=== PATIENT | female | born 1955 | race Caucasian/White ===

== ENCOUNTER 2019-10-17 02:28 | Observation (INO) ==
[2019-10-17] MEDS ORDERED: Nitroglycerin 0.4 MG TAB.SUBL SL PRN ×2 (03:11→10:45)
[2019-10-17 03:51] LABS: Basophils # 0.1 K/mcL (0.0-0.2); Basophils % 0.6 %; Eosinophils # 0.5 K/mcL (0.0-0.6); Hematocrit 34.4 % (35.3-44.9); Hemoglobin 11.2 g/dL (11.5-15.4); Immature Granulocytes % 0.6 % (0-4); Lymphocytes # 3.9 K/mcL (0.6-4.6); Lymphocytes % 37.1 %; Mean Corpuscular HGB Conc 32.6 g/dL (31.6-35.5); Mean Corpuscular Hemoglobin 28.6 pg (28.0-33.3); Mean Platelet Volume 10.9 fL (9.4-12.4); Monocytes # 0.9 K/mcL (0.0-1.3); Monocytes % 8.8 %; Neutrophils # 5.1 K/mcL (1.6-8.9); Platelet Count 237 K/mcL (140-400); Red Blood Count 3.91 M/mcL (3.82-4.97); Red Cell Distribution Width 12.5 % (11.5-14.5); Segmented Neutrophils % 47.9 %; White Blood Count 10.6 K/mcL (4.3-11.1)
[2019-10-17 03:56] LABS: INR 0.9; Prothrombin Time 10.3 Seconds (9.4-12.1)
[2019-10-17 03:59] LABS: Activated Partial Thrombo Time 30.9 Seconds (26.0-36.0)
[2019-10-17 04:07] LABS: Calcium 7.9 mg/dL (8.6-10.3); Troponin I 0.03 ng/mL (< 0.04)
[2019-10-17] MEDS ORDERED: 0.9 % Sodium Chloride 1,000 ML IVC SCH ×2 (06:15→10:45)
[2019-10-17] MEDS ORDERED: Naloxone 0.4 MG/ML INJ IVP PRN ×2 (06:45→10:45)
[2019-10-17] MEDS ORDERED: D5% in Water 1,000 ML IVC PRN ×2 (06:48→10:45)
[2019-10-17] MEDS ORDERED: *HR* Dextrose 50 % in Water (Syg) 50 ML SYRINGE IVP PRN ×2 (06:48→10:45)
[2019-10-17] MEDS ORDERED: Dextrose Gel 15 GM/37.5 ML TUBE PO PRN ×4 (06:48→10:45)
[2019-10-17] MEDS ORDERED: Insulin LISPRO 300 UNITS/3 ML VIAL SQ SCH ×3 (07:30→21:00)
[2019-10-17] MEDS ORDERED: Albuterol 2.5 MG/3 ML NEBULIZER IH PRN (10:45)
[2019-10-17] MEDS ORDERED: NON-FORMULARY MEDICATION 1 EACH EACH (Mometasone/Formoterol [Dulera 200 Mcg/5 Mcg Inhaler] IH SCH (10:45)
[2019-10-17] MEDS ORDERED: *HR* HYDROcodone/Acet 5/325 mg TABLET PO PRN (10:45)
[2019-10-17] MEDS: Insulin LISPRO 300 UNITS/3 ML VIAL SQ SCH ×4 (12:10→16:24)
[2019-10-17] MEDS: Metoprolol XL (24 HR) Succ 50 MG TAB.ER.24H PO SCH (12:22)
[2019-10-17] MEDS: Aspirin Enteric Coated 81 MG Tablet PO SCH (12:22)
[2019-10-17] MEDS: Furosemide 20 MG TABLET PO SCH (12:23)
[2019-10-17] MEDS: Clotrimazole/Betameth Dip CRM 45 APPL/45 GM TUBE TP SCH ×2 (12:23→20:45)
[2019-10-17] MEDS: Alogliptin Benzoate [Alogliptin] 12.5 MG PO SCH (13:07)
[2019-10-17] MEDS ORDERED: hydrALAZINE 10 MG TABLET PO SCH (18:00)
[2019-10-17] MEDS: Insulin DETEMIR 100 UNIT/ML X5UNITS SQ SCH (20:43)
[2019-10-17] MEDS: Budesonide/Formoterol 160/4.5 1 PUFF INH IH SCH (20:48)
[2019-10-18] MEDS ORDERED: *HR* Enoxaparin 40 MG/0.4 ML SYRINGE SQ SCH (06:00)
[2019-10-18 06:50] LABS: Hematocrit 33.1 % (35.3-44.9); Hemoglobin 10.9 g/dL (11.5-15.4); Mean Corpuscular HGB Conc 32.9 g/dL (31.6-35.5); Mean Corpuscular Hemoglobin 28.6 pg (28.0-33.3); Mean Corpuscular Volume 86.9 fL (83.0-100.0); Mean Platelet Volume 10.8 fL (9.4-12.4); Platelet Count 275 K/mcL (140-400); Red Blood Count 3.81 M/mcL (3.82-4.97); Red Cell Distribution Width 12.5 % (11.5-14.5)
[2019-10-18 07:22] LABS: Albumin 2.3 g/dL (3.5-5.7); Bilirubin,Total 0.2 mg/dL (0.3-1.0); Calcium 7.8 mg/dL (8.6-10.3); Globulin 2.4 g/dL (2.4-3.5); Magnesium 1.8 mg/dL (1.6-2.6); Total Protein 4.7 g/dL (6.4-8.9)
[2019-10-18] MEDS: Insulin LISPRO 300 UNITS/3 ML VIAL SQ SCH ×2 (07:45→12:05)
[2019-10-18] MEDS: Budesonide/Formoterol 160/4.5 1 PUFF INH IH SCH (07:58)
[2019-10-18] MEDS: Furosemide 20 MG TABLET PO SCH ×2 (08:43→08:51)
[2019-10-18] MEDS: Insulin DETEMIR 100 UNIT/ML X5UNITS SQ SCH (08:44)
[2019-10-18] MEDS: Alogliptin Benzoate [Alogliptin] 12.5 MG PO SCH (08:44)
[2019-10-18] MEDS: Aspirin Enteric Coated 81 MG Tablet PO SCH (08:51)
[2019-10-18] MEDS: Metoprolol XL (24 HR) Succ 50 MG TAB.ER.24H PO SCH (08:51)
[2019-10-18] MEDS: Clotrimazole/Betameth Dip CRM 45 APPL/45 GM TUBE TP SCH (08:52)
[2019-10-18 12:45] VITALS: BP 188/77
[2019-10-18 18:18] LABS: Estimated Average Glucose 192 mg/dl
== END 2019-10-18 12:40 | disposition home or self-care (01) ==
LOC: EMEROOGRE 02:28 → INPGRE 02:28
PROVIDERS: ADMIT Family Medicine; ATTEND Family Medicine